=== PATIENT | male | born 1955 | race Caucasian/White ===

== ENCOUNTER → 2016-12-18 | Outpatient (CLI) | payer MEDICARE, OTHER ==
[~2016-12-18] MED LIST: ABILIFY PO; ABILIFY2 MG PO; ADVAIR 500-501 EACH; ALBUTEROL17 G1 IH; ALBUTEROL17 GM INH; B-COMPLEX-VITA1 EACH PO; BACLOFEN10 MG PO; BENADRYL PO; BENADRYL25 MG PO; BUPROPION HCL150 M2 PO; CALCIUM 600 + D1 TA1 PO; CALCIUM PHOSPHATE PO; CALCIUM1 TAB.CHEW PO; CIALIS PO; COLACE; COLACE PO; COLACE50 MG PO; D3 + K2 DOTS 1,1 TAB PO; DEXFOL PO; FLOMAX0.4 MG; FORTAMET1000 MG/B1 PO; GABAPENTIN400 M2 PO; GABAPENTIN400 MG PO; HYDROCODON-ACE1 EAC5 PO; HYTRIN PO; HYTRIN1 M1 PO; INDOMETHACIN; KEFLEX500 M1 PO; KROGER PHARMACY; LEVAQUIN PO; LEVITRA PO; LIDODERM30 EA TOP; LISINOPRIL PO; LISINOPRIL10 MG PO; LORTAB 10-3251 EACH PO; LORTAB 10-5001 EACH; LORTAB 7.5-5001 TAB; MEN'S 50+ DAIL1 EACH PO; MEN'S ONE DAILY1 TA1 PO; METFORMIN HCL1000 M1 PO; MOBIC PO; MULTI-VITAMIN1 TAB; NABUMETONE; NAPROSYN500 MG PO; NASONEX17 GM; NEURONTIN PO; OMEPRAZOLE40 MG PO; PAMELOR; PAMELOR25 M1 PO; PAMELOR25 M2 PO; PERCOCET 10/3251 TAB PO; POSTURE600 MG PO; PRILOSEC40 MG PO; PYRIDOXINE HCL50 MG PO; QVAR7.3 G1 INH; QVAR7.3 GM INH; RELAFEN500 MG PO; REQUIP0.5 MG PO; REQUIP1 MG PO; SIMVASTATIN20 MG PO; TERAZOSIN HCL2 MG PO; TOPROL XL50 MG PO; TYLENOL325 M1 PO; UREA; VENTOLIN5 MG/ML IH; VIT B 12; VIT C PO; VIT E PO; VITAMIN B-121000 MC1 PO; VITAMIN B-650 M2 PO; VITAMIN B650 M2 PO; VITAMIN C500 M1 PO; VITAMIN D-32000 UNI1 PO; VITAMIN D31000 UNI1 PO; VITAMIN E400 UNI2 PO; VITAMIN E400 UNI4 PO; WELLBUTRIN PO; ZANAFLEX PO; ZANAFLEX4 M1 PO; ZANTAC; ZOCOR PO; ZOLOFT
--- NOTE | ~2016-12-18 | MR32 ---
[facility] A Service of [facility] RADIOLOGY TEXT RESULTS PATIENT: JORGE DUFF LOCATION: [facility] : 53 UNIT #: [id number] AGE: [address]: Concha Barba MD SEX: M ORDER DR: [id number] [address] [address] [id number] O MR#: [id number] Acc #: [id number] NAME: JORGE DUFF : 1955 SEX: M STUDY DATE/TIME: 12/18/2016 15:50 UNIT: [facility] ROOM: STUDY DESCRIPTION: MR Cervical Wo Contrast Attending Physician: Concha Barba M.D. Referring Physician: Concha Barba M.D. Ordering Physician: Concha Barba M.D. Primary Care Physician: Concha Barba M.D. MRI CENTER REPORT This report is preliminary unless electronic signature is present. EXAM MRI of the cervical spine without contrast dated 12/18/2016 COMPARISON MRI cervical spine with and without contrast dated 05/17/2016 HISTORY Increasing headaches, neck pain which is worse in the last 2-4 months. Not improving. History of prior surgery. TECHNIQUE Multisequence multiplanar imaging of the cervical spine was obtained without contrast. FINDINGS Status post anterior cervical fusion is noted from C5-C7 with presence of hardware, susceptibility artifact and intervertebral disc prosthesis. There appears to be some bony fusion across the disc spaces, which is also seen in the study from last year. There is expected caliber of the cord with some posterior displacement relating to posterior osteophyte at the level of C4-5. No cord compression or cord signal change is seen. Imaged posterior fossa and craniovertebral junction do not demonstrate any obvious abnormality. Pre and paravertebral soft tissues do not demonstrate any significant abnormality. C2-3: Concentric disc bulge with mild left and mild to moderate right facet hypertrophic change. No significant canal stenosis or neural foraminal narrowing. Stable. C3-4: Concentric disc bulge with superimposed central moderate protrusion, stable to slightly worse with hqok-qd-uwgwssnx canal stenosis. Bpxu-ck-rvgmdtyl bilateral facet hypertrophic changes are noted with zvaxarbk-mz-wiekfc right neural foraminal narrowing. [facility]. [facility] A Service of [facility] RADIOLOGY TEXT RESULTS PATIENT: JORGE DUFF LOCATION: [facility] : 53 UNIT #: [id number] AGE: [address]: Concha Barba MD SEX: M ORDER DR: C4-5: Disc osteophyte complex with moderate right and mild left facet hypertrophic change. There is moderate superior right neural foraminal narrowing and mild left neural foraminal narrowing. Borderline-sized canal. C5-6, C6-7: Postoperative changes of fusion are noted. Bony bilateral C5-6 stable neural foraminal narrowing is noted. There is an increased T2 signal 5.5 mm lesion in the right C6-7 neural foramen. Mild to moderate C5-6 and mild C6-7 canal stenosis is seen. C7-T1: Mild disc bulge without canal stenosis or neural foraminal narrowing. IMPRESSION 1. Status post anterior cervical fusion with hardware from C5-C7 with partial bony fusion. There are some posterior spurs noted at the level of effusion, particularly at C5-6 which causes hlat-hz-njoxiuqa canal stenosis and displacement of the cord posteriorly without cord compression or cord signal change. 2. No significant interval change since last year. Dictated by... Maya Tatum M.D. THIS IS AN ELECTRONICALLY VERIFIED REPORT Maya Tatum M.D. at 12/21/2016 12:35 PM CPR/to TD: 12/19/2016 12:03 JOB #: [id number] MRI CENTER REPORT Page 1 of 1
== END | disposition home or self-care (01) ==
LOC: SMRI 14:17
DX: M50.90 Cervical disc disorder, unspecified, unspecified cervical region (principal); R51 Headache; M54.2 Cervicalgia; M50.222 Other cervical disc displacement at C5-C6 level; M48.02 Spinal stenosis, cervical region; M46.02 Spinal enthesopathy, cervical region; Z98.1 Arthrodesis status
CPT/HCPCS: 72141